=== PATIENT | female | born 1970 | race Caucasian/White ===

== ENCOUNTER → 2016-05-16 | Outpatient (CLI) | payer OTHER ==
[~2016-05-16] MED LIST: FERR324T4 PO; FERR325T PO; GABA100C4 PO; MEDICAL COMPRES1 MIS; PRAV40TA2 PO; SERT-132 PO; TRAM50TA PO; XARE20TA PO
--- NOTE | 2016-05-16 15:15 | RADRPT ---
EXAM DATE/TIME: 05/16/2016 09:57 [facility] COMPARISON: US LEG RIGHT VENOUS DOPPLER, July 23, 2014, 14:08. INDICATIONS : Right leg swelling and pain. MEDICAL HISTORY : Myocardial infarction. Stroke. Deep venous thrombosis. Hyperlipidemia. Dyspnea. Arthritis. Anemia. HPV. SURGICAL HISTORY : Tubal ligation. Eye surgery. Right knee surgery. Cervical conization. ENCOUNTER: Subsequent ACUITY: 3 days PAIN SCORE: 4/10 LOCATION: Right leg. TECHNIQUE: Venous ultrasound of the leg was performed from the inguinal ligament to the proximal calf. Real-gordo e, color Doppler and spectral tracing, compression and augmentation techniques were used. FINDINGS: Nonocclusive thrombus is noted involving the right superficial femoral, popliteal and peroneal veins. There is normal color flow within the right posterior tibial and common femoral veins. CONCLUSION: Nonocclusive thrombus within the right superficial femoral, popliteal and peroneal veins. Mejia Arshad MD on May 16, 2016 at 15:12 Board Certified Radiologist. This report was verified electronically.
== END ==
LOC: HRAD 09:27
PROVIDERS: ATTEND Family Medicine
DX: M79.604 Pain in right leg (principal); I82.409 Acute embolism and thrombosis of unspecified deep veins of unspecified lower extremity; I63.9 Cerebral infarction, unspecified
CPT/HCPCS: 93971

== ENCOUNTER 2016-08-18 13:55 | Emergency (ER) | payer OTHER ==
[~2016-08-18] VITALS: Ht 175.3 cm; Wt 105.0 kg
[~2016-08-18 13:55] MED LIST changes: -FERR324T4 PO; -GABA100C4 PO; -SERT-132 PO; -TRAM50TA PO
[2016-08-18 13:57] VITALS: BP 132/77; PULSE 59; RESP 18; TEMP 98.5; O2SAT 97
[2016-08-18 14:35] VITALS: RESP 17; O2SAT 99
--- NOTE | 2016-08-18 14:36 | PD ---
HPI Chief Complaint: Chest Pain Time Seen by Provider: 14:35 Travel History International Travel<30 days: No Contact w/Intl Traveler<30days: No Traveled to known affect area: No History of Present Illness HPI 46-year-old female with a history of ME, DVT, PE, CVA with right-sided hemiplegia and expressive aphasia presents to the emergency department for evaluation of right knee and thigh pain and chest pain. The patient has a history of IV drug use which was the cause of her stroke. States that she has not used IV drugs since she had her stroke in 2014. She complains of pain in her right knee and right thigh that has been going on for several years now. States that the pain worsened today and it is a 10 on a scale of 1-10. She states that she is also having some chest tightness today. States that she's had chest tightness intermittently for several years now. She has some mild shortness of breath. Denies lightheadedness, dizziness, nausea, vomiting, diarrhea, abdominal pain, numbness or tingling, weakness, swelling of the extremities. She is anticoagulated on Xarelto. PCP is Dr. Toure. No other complaints. PFSH Past Medical History Hx Anticoagulant Therapy: Yes (xarelto) Anemia: Yes (UNKNOWN ETIOLOGY) Arthritis: Yes (right knee) Asthma: No Autoimmune Disease: No Blood Disorders: No Anxiety: Yes Depression: Yes Heart Rhythm Problems: No Cancer: Yes (ABNORMAL PAP ) Cardiovascular Problems: Yes (PT STATES SHE WAS TOLD SHE HAD ONE BUT STATES SHE DIDN'T) High Cholesterol: Yes Chemotherapy: No Chest Pain: No Congestive Heart Failure: No COPD: Yes Cerebrovascular Accident: Yes Diabetes: No Diminished Hearing: No Endocrine: No Gastrointestinal Disorders: No GERD: No Genitourinary: Yes (INCONTINENT DUE TO STROKE) Headaches: No Hepatitis: Yes (PT NOT SURE WHICH TYPE A OR B) Hiatal Hernia: No Hypertension: No Immune Disorder: No Implanted Vascular Access Dvce: Yes Kidney Stones: No Medical other: Yes (DVT IN R LEG, HX OF SUBSTANCE ABUSE) Neurologic: Yes (STROKE April, FLACID ON RUE, SPEECH DIFFICULTY, USE BRACE FOR FOOT) Psychiatric: Yes (DEPRESSION, ANXIETY) Reproductive: Yes (Uterine fibroid) Respiratory: Yes (PE 2004) Immunizations Current: Yes Migraines: No Radiation Therapy: No Renal Failure: No Seizures: No Sickle Cell Disease: No Sleep Apnea: No Thyroid Disease: No Ulcer: No Tetanus Vaccination: > 5 Years Influenza Vaccination: Yes ?: Not : 3 Para: 3 Tubal Ligation: Yes Past Surgical History Abdominal Surgery: No AICD: No Arteriovenous Shunt: No Body Medical Devices: R CORNEAL REPAIR PT NOT SURE IF LENS IMPLANTED Cardiac Surgery: No Ear Surgery: No Endocrine Surgery: No Eye Surgery: Yes (R CORNEAL REPAIR CORNEAL TX ON RIGHSIDE X2) Genitourinary Surgery: No Gynecologic Surgery: No Insulin Pump: No Joint Replacement: No Neurologic Surgery: No Oral Surgery: No Pacemaker: No Thoracic Surgery: No Other Surgery: Yes (RIGHT SIDE OF NECK) Social History Alcohol Use: No (PT DENIES) Tobacco Use: No (quit 2014) Substance Use: Yes (HX OF PT DENIES AT THIS TIME) Allergies-Medications (Allergen,Severity, Reaction): Coded Allergies: Demerol (Verified Allergy, Severe, swelling all over body, 08/18/16) Penicillin (Verified Allergy, Severe, SWELLING, 08/18/16) Reported Meds & Prescriptions Reported Meds & Active Scripts Active Xarelto (Rivaroxaban) 20 Mg Tab 20 Mg PO DAILY Pravastatin 40 Mg Tab 40 Mg PO DAILY Review of Systems Except as stated in HPI: all other systems reviewed are Neg Physical Exam Narrative GENERAL: Well-nourished and well-developed female patient in no acute distress however is histrionic. SKIN: Warm and dry. HEAD: Normocephalic and atraumatic. EYES: No injection, drainage, or hyphema noted. PERRLA. EOMI. ENT: No nasal drainage noted. Oropharynx is clear. NECK: Supple and the trachea is midline. CARDIOVASCULAR: Regular rate and rhythm. RESPIRATORY: Breath sounds are equal bilaterally with no accessory muscle use, wheezing, rhonchi, or crackles. GASTROINTESTINAL: Abdomen is soft, non-tender, and nondistended. MUSCULOSKELETAL: Tenderness to palpation of the right anterior knee and thigh. No obvious deformities, swelling, cyanosis, or ecchymosis is present throughout the upper and lower extremities. Patient has full range of motion in all extremities. DP pulses are 2+ bilaterally. NEUROLOGICAL: Awake, alert, and oriented. Expressive aphasia noted from previous stroke. Cranial nerves are grossly intact. Data Data Last Documented VS Vital Signs Date Time Temp Pulse Resp B/P Pulse Ox O2 Delivery O2 Flow Rate FiO2 08/18/16 15:32 97.8 60 17 108/58 99 Room Air Orders Electrocardiogram (08/18/16 14:32) Ckmb (Isoenzyme) Profile (08/18/16 14:32) Complete Blood Count With Diff (08/18/16 14:32) Comprehensive Metabolic Panel (08/18/16 14:32) Prothrombin Time / Inr (Pt) (08/18/16 14:32) Act Partial Throm Time (Ptt) (08/18/16 14:32) Troponin I (08/18/16 14:32) Chest, Single Ap (08/18/16 14:32) Ecg Monitoring (08/18/16 14:32) Iv Access Insert/Monitor (08/18/16 14:32) Oximetry (08/18/16 14:32) Sodium Chloride 0.9% Flush (Ns Flush) (08/18/16 14:45) Knee, Complete (4vws) (08/18/16 14:32) Us Leg Venous Doppler (08/18/16 14:32) Morphine Inj (Morphine Inj) (08/18/16 14:45) Ondansetron Inj (Zofran Inj) (08/18/16 14:45) Labs Laboratory Tests Test 08/18/16 14:30 White Blood Count 7.8 TH/MM3 Red Blood Count 4.40 MIL/MM3 Hemoglobin 12.5 GM/DL Hematocrit 38.3 % Mean Corpuscular Volume 87.1 FL Mean Corpuscular Hemoglobin 28.5 PG Mean Corpuscular Hemoglobin 32.6 % Concent Red Cell Distribution Width 13.4 % Platelet Count 265 TH/MM3 Mean Platelet Volume 8.2 FL Neutrophils (%) (Auto) 56.9 % Lymphocytes (%) (Auto) 34.3 % Monocytes (%) (Auto) 7.0 % Eosinophils (%) (Auto) 1.2 % Basophils (%) (Auto) 0.6 % Neutrophils # (Auto) 4.4 TH/MM3 Lymphocytes # (Auto) 2.7 TH/MM3 Monocytes # (Auto) 0.5 TH/MM3 Eosinophils # (Auto) 0.1 TH/MM3 Basophils # (Auto) 0.0 TH/MM3 CBC Comment DIFF FINAL Differential Comment Prothrombin Time 13.9 SEC Prothromb Time International 1.2 RATIO Ratio Activated Partial 39.7 SEC Thromboplast Time Sodium Level 140 MEQ/L Potassium Level 4.1 MEQ/L Chloride Level 105 MEQ/L Carbon Dioxide Level 25.5 MEQ/L Anion Gap 10 MEQ/L Blood Urea Nitrogen 10 MG/DL Creatinine 0.84 MG/DL Estimat Glomerular Filtration 73 ML/MIN Rate Random Glucose 70 MG/DL Calcium Level 8.9 MG/DL Total Bilirubin 0.4 MG/DL Aspartate Amino Transf 11 U/L (AST/SGOT) Alanine Aminotransferase 18 U/L (ALT/SGPT) Alkaline Phosphatase 65 U/L Total Creatine Kinase 76 U/L Troponin I LESS THAN 0.02 NG/ML Total Protein 8.1 GM/DL Albumin 3.6 GM/DL MDM Medical Decision Making Medical Screen Exam Complete: Yes Emergency Medical Condition: Yes Differential Diagnosis Muscle strain versus muscle spasm versus DVT versus arthritis versus chest wall pain versus ACS versus anxiety Narrative Course 46-year-old female presents to the emergency department for evaluation of right knee and leg pain and chest pain. Patient is afebrile, vital signs are stable. The patient is reporting that both of these pains have been present for years. She states she is ultimately here today because her right knee and leg is causing her more pain than usual. Physical examination is essentially unremarkable. She has a history of DVT and therefore we'll do an ultrasound. X -ray imaging of the right knee has been ordered and is pending. IV access obtained, labs have been drawn and sent. Patient is placed on cardiac telemetry and pulse oximetry monitoring. EKG shows normal sinus rhythm with no acute ST elevations or depressions. CBC is unremarkable. CMP is unremarkable. Coags are unremarkable. Troponin is less than 0.02. Chest x-ray is unremarkable. X-rays shows mild osteoarthritis of the right knee. No acute abnormality. Right lower extremity ultrasound shows nonocclusive thrombus within the mid to distal femoral vein and popliteal vein. This likely represent chronic DVT related to the thrombus identified on prior study from April 2016. The patient has a chronic DVT in the right lower extremity and some osteoarthritis in the right knee. These are likely why she is experiencing right knee and leg pain. She is already anticoagulated on Xarelto. We'll discharge her home with a short course of tramadol. Advised to follow up as an outpatient with her PCP. Patient verbalizes understanding and agreement with treatment plan. I discussed the case with my attending physician Dr. Dela Cruz who is aware of the patients history, physical examination findings, and treatment plan. Diagnosis Primary Impression: Right knee pain Qualified Code: M25.561 - Chronic pain of right knee Additional Impression: Chronic deep vein thrombosis (DVT) Qualified Code: I82.511 - Chronic deep vein thrombosis (DVT) of femoral vein of right lower extremity Referrals: Primary Care Physician Patient Instructions: General Instructions, Knee Pain (ED) Additional Instructions: Take medication as prescribed. Follow-up with your Primary Care Physician. Return to the ED for any acute worsening of symptoms. Med/Other Pt SpecificInfo: Prescription(s) given Scripts Tramadol 50 Mg Tab50 Mg PO Q8H PRN (PAIN GREATER THAN 6) #15 TAB Ref 0 Prov:Bennett Dela Cruz MD 08/18/16 Disposition: 01 DISCHARGE HOME Condition: Stable Alyssa Martinez Aug 18, 2016 14:36
[2016-08-18] MEDS ORDERED: SODIUM CHLORIDE 0.9% FLUSH 10 ML FLUSH IVF PRN (14:45)
[2016-08-18] MEDS ORDERED: ONDANSETRON HCL 4 MG/2 ML VIAL IVP ONE (14:45)
[2016-08-18] MEDS ORDERED: MORPHINE SULFATE 4 MG/ML INJ IV PUSH ONE (14:45)
[2016-08-18 14:54] LABS: AUTOMATED NEUTROPHIL # 4.4 TH/MM3 (1.8-7.7); BASOPHIL % 0.6 % (0.0-2.0); EOSINOPHIL # 0.1 TH/MM3 (0-0.4); EOSINOPHIL % 1.2 % (0.0-4.0); HEMATOCRIT 38.3 % (35.0-46.0); HEMO FLAGS DIFF FINAL; LYMPH % 34.3 % (9.0-44.0); LYMPHOCYTE # 2.7 TH/MM3 (1.0-4.8); MEAN CELL VOLUME 87.1 FL (80.0-100.0); MEAN CORPUSCULAR HEMOGLOBIN 28.5 PG (27.0-34.0); MEAN CORPUSCULAR HGB CONC 32.6 % (32.0-36.0); NEUT % 56.9 % (16.0-70.0); PLATELET COUNT 265 TH/MM3 (150-450); RED CELL DISTRIBUTION WIDTH 13.4 % (11.6-17.2); WHITE BLOOD COUNT 7.8 TH/MM3 (4.0-11.0)
[2016-08-18 15:09] LABS: APTT (PATIENT) 39.7 SEC (24.3-30.1); INTERNATIONAL NORMALIZED RATIO 1.2 RATIO; PROTHROMBIN TIME - PATIENT 13.9 SEC (9.8-11.6)
[2016-08-18 15:16] LABS: ALT (GPT) 18 U/L (10-53); ANION GAP 10 MEQ/L (5-15); AST (GOT) 11 U/L (15-37); BICARBONATE 25.5 MEQ/L (21.0-32.0); BLOOD UREA NITROGEN 10 MG/DL (7-18); CHLORIDE 105 MEQ/L (98-107); GLOMERULAR FILTRATION RATE 73 ML/MIN (>89); POTASSIUM 4.1 MEQ/L (3.5-5.1); SODIUM (NA) 140 MEQ/L (136-145)
[2016-08-18 15:20] LABS: ALKALINE PHOSPHATASE 65 U/L (45-117); TOTAL BILIRUBIN ADULT 0.4 MG/DL (0.2-1.0)
[2016-08-18 15:23] LABS: CREATINE KINASE 76 U/L (26-192)
[2016-08-18 15:32] VITALS: BP 108/58; PULSE 60; RESP 17; TEMP 97.8; O2SAT 99
--- NOTE | 2016-08-18 15:37 | RADRPT ---
EXAM DATE/TIME: 08/18/2016 14:46 [facility] COMPARISON: US LEG RIGHT VENOUS DOPPLER, May 16, 2016, 9:57. INDICATIONS : Right leg pain. MEDICAL HISTORY : Myocardial infarction. Hypercholesterolemia. Chronic obstructive pulmonary disease. Stroke. CVA. A nticoagulant therapy. DVT. Pulmonary embolism. Dyspnea. Uterine fibroids. Arthritis. Hepatitis. SURGICAL HISTORY : Tubal ligation. Right eye prosthesis. Throat surgery. Right corneal repair. Cerival conization. ENCOUNTER: Initial ACUITY: 1 day PAIN SCORE: 10/10 LOCATION: Right leg. TECHNIQUE: Venous ultrasound of the leg was performed from the inguinal ligament to the proximal calf. Real-gordo e, color Doppler and spectral tracing, compression and augmentation techniques were used. FINDINGS: There is incomplete compression of the right mid femoral vein, distal femoral vein, popliteal vein, a nd posterior tibial vein. These vessels demonstrate residual blood flow. The more proximal vessels ar e patent. CONCLUSION: There is nonocclusive thrombus within the mid to distal femoral vein and popliteal vein. This likely represents chronic DVT related to the thrombus identified on prior study from 05/16/2016. Frank Sainz MD on August 18, 2016 at 15:32 Board Certified Radiologist. This report was verified electronically.
--- NOTE | 2016-08-18 15:56 | RADRPT ---
EXAM DATE/TIME: 08/18/2016 14:58 [facility] COMPARISON: CHEST SINGLE AP, July 10, 2015, 9:17. INDICATIONS : Chest pain. No injury. MEDICAL HISTORY : Myocardial infarction. Stroke. Deep venous thrombosis. Hyperlipidemia. Dyspnea. Arthritis. Anemia. HP V. SURGICAL HISTORY : Tubal ligation. Eye surgery. Right knee surgery. Cervical conization ENCOUNTER: Initial ACUITY: 2 days PAIN SCORE: 2/10 LOCATION: Bilateral chest FINDINGS: A single view of the chest demonstrates the lungs to be symmetrically aerated without evidence of mas s, infiltrate or effusion. The cardiomediastinal contours are unremarkable. Osseous structures are intact. CONCLUSION: 1. No acute findings. Juan Luis Hassan MD on August 18, 2016 at 15:53 Board Certified Radiologist. This report was verified electronically.
--- NOTE | 2016-08-18 15:59 | RADRPT ---
EXAM DATE/TIME: 08/18/2016 15:01 [facility] COMPARISON: No previous studies available for comparison. INDICATIONS : Right knee pain and swelling. No injury. MEDICAL HISTORY : Stroke. Myocardial infarction. Deep venous thrombosis. Hyperlipidemia. Dyspnea. Arthritis. Anemia . HPV. SURGICAL HISTORY : Tubal ligation. Eye surgery. Right knee surgery. Cervical conization. ENCOUNTER: Subsequent ACUITY: 1 week PAIN SCORE: 4/10 LOCATION: Right knee FINDINGS: Four view examination of the right knee demonstrates no evidence of fracture or dislocation. Bony mi neralization is normal. The articular surfaces are intact. The suprapatellar soft tissues have a no rmal configuration. CONCLUSION: Mild osteoarthritis of the right knee. No acute bony abnormality. Juan Luis Hassan MD on August 18, 2016 at 15:54 Board Certified Radiologist. This report was verified electronically.
[2016-08-18] MEDS ORDERED: TRAM50TA PO (16:11)
[2016-08-18 16:20] VITALS: BP 128/76; TEMP 97.8
--- NOTE | 2016-08-19 16:33 | EKG ---
Date Performed: 08/18/2016 Time Performed: 14:27:59 PTAGE: 46 years EKG: Sinus rhythm NORMAL ECG PREVIOUS TRACING : 02/05/2015 23.18 Compared to prior tracing no significant change DOCTOR: Renetta Morales Interpretating Date/Time 08/19/2016 16:32:57
[2016-08-20] MEDS ORDERED: FERR324T4 PO (16:12)
== END 2016-08-18 16:20 | disposition home or self-care (01) ==
LOC: NEPE 13:55
DX: M25.561 Pain in right knee (principal); G89.29 Other chronic pain; I82.511 Chronic embolism and thrombosis of right femoral vein
CPT/HCPCS: 71010; 73564; 80053; 82550; 84484; 85025; 85610; 85730; 93005; 93971; 96374; 96375; 99285; J2270; J2405

== ENCOUNTER 2016-09-27 13:40 | Emergency (ER) | payer OTHER ==
[~2016-09-27] VITALS: Ht 175.3 cm; Wt 105.0 kg
[~2016-09-27 13:40] MED LIST changes: +FERR324T4 PO; -FERR325T PO; -MEDICAL COMPRES1 MIS
[2016-09-27 13:52] VITALS: BP 122/60; PULSE 81; RESP 46; TEMP 98.4; O2SAT 97
--- NOTE | 2016-09-27 14:33 | RADRPT ---
EXAM DATE/TIME: 09/27/2016 14:05 [facility] COMPARISON: No previous studies available for comparison. INDICATIONS : Entire right foot pain after rolling it today. MEDICAL HISTORY : Stroke. Hypercholesterolemia. Myocardial infarction. DVT. Uterine fibroid, PE. Osteoarthrits. HPV . SURGICAL HISTORY : Tubal ligation. Ganglion cyst removal. ENCOUNTER: Initial ACUITY: 1 day PAIN SCORE: 8/10 LOCATION: Right foot FINDINGS: Three view examination of the right foot demonstrates no soft tissue swelling, dislocation, or fractu re. The tarsal bones appear intact. The interphalangeal and metatarsophalangeal joints are intact. The calcaneus is intact. Bony mineralization is normal. CONCLUSION: 1. No acute findings. Juan Luis Hassan MD on September 27, 2016 at 14:30 Board Certified Radiologist. This report was verified electronically.
--- NOTE | 2016-09-27 14:58 | PD ---
HPI Chief Complaint: Musculoskeletal Complaint Time Seen by Provider: 14:35 Travel History International Travel<30 days: No Contact w/Intl Traveler<30days: No Traveled to known affect area: No History of Present Illness HPI 46-year-old female presents for evaluation of right ankle pain. She reports that this morning she rolled her right ankle in an inversion mechanism while she was walking. Initially she had some pain but she was able to ambulate. Over the course of the past several hours the pain has progressed and now it is quite painful when she ambulance. Pain is a throbbing pain along the lateral aspect of the right ankle which is constant, worse with movement. She denies any other injuries and she has no other complaints at this time. PFSH Past Medical History Hx Anticoagulant Therapy: Yes (xarelto) Anemia: Yes (UNKNOWN ETIOLOGY) Arthritis: Yes (right knee) Asthma: No Autoimmune Disease: No Blood Disorders: No Anxiety: Yes Depression: Yes Heart Rhythm Problems: No Cancer: Yes (ABNORMAL PAP ) Cardiovascular Problems: Yes (PT STATES SHE WAS TOLD SHE HAD ONE BUT STATES SHE DIDN'T) High Cholesterol: Yes Chemotherapy: No Chest Pain: No Congestive Heart Failure: No COPD: Yes Cerebrovascular Accident: Yes Diabetes: No Diminished Hearing: No Endocrine: No Gastrointestinal Disorders: No GERD: No Genitourinary: Yes (INCONTINENT DUE TO STROKE) Headaches: No Hepatitis: Yes (PT NOT SURE WHICH TYPE A OR B) Hiatal Hernia: No Heparin Induced Thrombocytopen: No Hypertension: No Immune Disorder: No Implanted Vascular Access Dvce: Yes Kidney Stones: No Medical other: Yes (DVT IN R LEG, HX OF SUBSTANCE ABUSE) Neurologic: Yes (STROKE April, FLACID ON RUE, SPEECH DIFFICULTY, USE BRACE FOR FOOT) Psychiatric: Yes (DEPRESSION, ANXIETY) Reproductive: Yes (Uterine fibroid) Respiratory: Yes (PE 2004) Immunizations Current: Yes Migraines: No Radiation Therapy: No Renal Failure: No Seizures: No Sickle Cell Disease: No Sleep Apnea: No Thyroid Disease: No Ulcer: No ?: Not LMP: TUBAL LIAGATION : 3 Para: 3 Tubal Ligation: Yes Past Surgical History Abdominal Surgery: No AICD: No Arteriovenous Shunt: No Body Medical Devices: R CORNEAL REPAIR PT NOT SURE IF LENS IMPLANTED Cardiac Surgery: No Ear Surgery: No Endocrine Surgery: No Eye Surgery: Yes (R CORNEAL REPAIR CORNEAL TX ON RIGHSIDE X2) Genitourinary Surgery: No Gynecologic Surgery: No Insulin Pump: No Joint Replacement: No Neurologic Surgery: No Oral Surgery: No Pacemaker: No Thoracic Surgery: No Other Surgery: Yes (RIGHT SIDE OF NECK) Social History Alcohol Use: No (PT DENIES) Tobacco Use: No (quit 2014) Substance Use: Yes (HX OF PT DENIES AT THIS TIME) Allergies-Medications (Allergen,Severity, Reaction): Coded Allergies: Demerol (Verified Allergy, Severe, swelling all over body, 09/27/16) Penicillin (Verified Allergy, Severe, SWELLING, 09/27/16) Reported Meds & Prescriptions Reported Meds & Active Scripts Active Xarelto (Rivaroxaban) 20 Mg Tab 20 Mg PO DAILY Pravastatin 40 Mg Tab 40 Mg PO DAILY Reported Ferrous Sulfate DR (Ferrous Sulfate) 324 Mg Tabdr 324 Mg PO DAILY Review of Systems Musculoskeletal: Positive: Limited ROM, Edema, Pain Neurologic: No: Paresthesia Physical Exam Narrative GENERAL: Well-developed well-nourished female in no acute distress SKIN: Warm and dry. Some soft tissue swelling around the lateral malleolus of the right ankle. This is tender to palpation. CARDIOVASCULAR: Regular rate and rhythm. No murmur appreciated. RESPIRATORY: No accessory muscle use. Clear to auscultation. Breath sounds equal bilaterally. GASTROINTESTINAL: Abdomen soft, non-tender, nondistended. Hepatic and splenic margins not palpable. MUSCULOSKELETAL: Skin as noted above. There is pain with dorsi and plantar flexion of the right ankle. The Achilles tendon is intact and nontender. The medial aspect of the right ankle is nontender. NEUROLOGICAL: Awake and alert. No obvious cranial nerve deficits. Motor grossly within normal limits. Normal speech. Data Data Last Documented VS Vital Signs Date Time Temp Pulse Resp B/P Pulse Ox O2 Delivery O2 Flow Rate FiO2 09/27/16 13:52 98.4 81 46 122/60 97 Orders Foot, Complete ([id number]) (09/27/16 ) Ankle, Complete ([id number]) (09/27/16 ) Ice/Cold Pack (09/27/16 14:48) Acetaminophen (Tylenol) (09/27/16 15:00) Splint Or Brace Apply/Monitor (09/27/16 15:59) Crutches (09/27/16 15:59) MDM Medical Decision Making Medical Screen Exam Complete: Yes Emergency Medical Condition: Yes Medical Record Reviewed: Yes Differential Diagnosis Lateral ankle sprain, avulsion fracture, fibula fracture, Lisfranc injury Narrative Course 46-year-old female with lateral right ankle pain after twisting her ankle. X-ray imaging reveals no fracture. Her examination and history are consistent with lateral ankle sprain. She is being discharged with ankle stirrup splint and crutches. Diagnosis Primary Impression: Right ankle sprain Qualified Code: S93.401A - Sprain of right ankle, unspecified ligament, initial encounter Additional Instructions: Ice pack several times a day 10-15 minutes at a time. Elevate as much as possible. Crutches as needed. Once the swelling is resolved gradually return to normal activities avoiding activities that increase pain. Follow-up with primary care physician in 2 weeks for recheck. Med/Other Pt SpecificInfo: No Change to Meds Disposition: 01 DISCHARGE HOME Condition: Stable Kevan Giraldo Sep 27, 2016 14:58
[2016-09-27] MEDS ORDERED: ACETAMINOPHEN 325 MG TAB PO ONE (15:00)
--- NOTE | 2016-09-27 15:53 | RADRPT ---
EXAM DATE/TIME: 09/27/2016 15:16 [facility] COMPARISON: No previous studies available for comparison. INDICATIONS : Right lateral ankle pain after rolling it today. MEDICAL HISTORY : Stroke. Hypercholesterolemia. Myocardial infarction. DVT. Uterine fibroid, SURGICAL HISTORY : Tubal ligation. Ganglion cyst removal. ENCOUNTER: Initial ACUITY: 1 day PAIN SCORE: 10/10 LOCATION: Right Ankle FINDINGS: Three views of the right ankle demonstrate no fracture or dislocation. Ankle mortise is intact. [place] alization is within normal limits and there is no significant arthropathy. No soft tissue abnormality or radiopaque foreign body is identified. There is an enthesophyte at the posterior aspect of the ca lcaneus. CONCLUSION: No acute right ankle abnormality is identified. Frank Sainz MD on September 27, 2016 at 15:51 Board Certified Radiologist. This report was verified electronically.
== END 2016-09-27 17:25 | disposition home or self-care (01) ==
LOC: PHED 13:40
DX: S93.401A Sprain of unspecified ligament of right ankle, initial encounter (principal); X50.1XXA Overexertion from prolonged static or awkward postures, initial encounter; Y93.01 Activity, walking, marching and hiking
CPT/HCPCS: 73610; 73630; 99283; E0113; L1906

== ENCOUNTER 2016-10-19 22:10 | Emergency (ER) | payer OTHER ==
[~2016-10-19] VITALS: Ht 175.3 cm; Wt 107.0 kg
[2016-10-19 22:13] VITALS: BP 137/73; PULSE 72; RESP 16; TEMP 97.2; O2SAT 96
[2016-10-19] MEDS ORDERED: ACETAMINOPHEN/HYDROcodone 325 MG/5 MG TAB PO ONE (23:15)
--- NOTE | 2016-10-19 23:15 | PD ---
HPI Chief Complaint: Edema Time Seen by Provider: 22:57 Travel History International Travel<30 days: No Contact w/Intl Traveler<30days: No Traveled to known affect area: No History of Present Illness HPI The patient is a 46-year-old female who presents to the emergency department for swelling and pain in the posterior aspect of the left knee for the last 3 days duration. 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 The patient was taking Xarelto, however, stopped her Xarelto for 3 days last week for upcoming dental appointment that was subsequent we canceled. The patient then resumed her Xarelto. She complains of pain in the posterior aspect of the left knee that radiates into the left calf, worse with palpation and certain movements. 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 Symptoms are moderate , there are no current alleviating or exacerbating factors. PFSH Past Medical History Hx Anticoagulant Therapy: Yes (XARELTO ) Anemia: Yes (UNKNOWN ETIOLOGY) Arthritis: Yes (right knee) Asthma: No Autoimmune Disease: No Blood Disorders: No Anxiety: Yes Depression: Yes Heart Rhythm Problems: No Cancer: Yes (ABNORMAL PAP ) Cardiovascular Problems: Yes (PT STATES SHE WAS TOLD SHE HAD ONE BUT STATES SHE DIDN'T) High Cholesterol: Yes Chemotherapy: No Chest Pain: No Congestive Heart Failure: No COPD: Yes Cerebrovascular Accident: Yes Diabetes: No Diminished Hearing: No Endocrine: No Gastrointestinal Disorders: No GERD: No Genitourinary: Yes (INCONTINENT DUE TO STROKE) Headaches: No Hepatitis: Yes (PT NOT SURE WHICH TYPE A OR B) Hiatal Hernia: No Heparin Induced Thrombocytopen: No Hypertension: No Immune Disorder: No Implanted Vascular Access Dvce: Yes Kidney Stones: No Neurologic: Yes (STROKE April, FLACID ON RUE, SPEECH DIFFICULTY, USE BRACE FOR FOOT) Psychiatric: Yes (DEPRESSION, ANXIETY) Reproductive: Yes (Uterine fibroid) Respiratory: Yes (PE 2004) Immunizations Current: Yes Migraines: No Radiation Therapy: No Renal Failure: No Seizures: No Sickle Cell Disease: No Sleep Apnea: No Thyroid Disease: No Ulcer: No : 3 Para: 3 Tubal Ligation: Yes Past Surgical History Abdominal Surgery: No AICD: No Arteriovenous Shunt: No Body Medical Devices: R CORNEAL REPAIR PT NOT SURE IF LENS IMPLANTED Cardiac Surgery: No Ear Surgery: No Endocrine Surgery: No Eye Surgery: Yes (R CORNEAL REPAIR CORNEAL [place] ON RIGHSIDE X2) Genitourinary Surgery: No Gynecologic Surgery: No Insulin Pump: No Joint Replacement: No Neurologic Surgery: No Oral Surgery: No Pacemaker: No Thoracic Surgery: No Other Surgery: Yes (RIGHT SIDE OF NECK) Social History Alcohol Use: No (PT DENIES) Tobacco Use: No (quit 2014) Substance Use: Yes (HX OF PT DENIES AT THIS TIME) Allergies-Medications (Allergen,Severity, Reaction): Coded Allergies: meperidine (Unverified Allergy, Severe, swelling all over body, 10/19/16) penicillin G (Unverified Allergy, Severe, SWELLING, 10/19/16) Reported Meds & Prescriptions Reported Meds & Active Scripts Active Xarelto (Rivaroxaban) 20 Mg Tab 20 Mg PO DAILY Pravastatin 40 Mg Tab 40 Mg PO DAILY Reported Ferrous Sulfate DR (Ferrous Sulfate) 324 Mg Tabdr 324 Mg PO DAILY Review of Systems Except as stated in HPI: all other systems reviewed are Neg Cardiovascular: No: Chest Pain or Discomfort Respiratory: No: Shortness of Breath Musculoskeletal: Positive: Edema, Pain Neurologic: Positive: Other (history of previous CVA with left-sided weakness) Physical Exam Narrative GENERAL: Awake, alert, pleasant 46-year-old female who appears her stated age and is in no acute respiratory distress. SKIN: Focused skin assessment warm/dry. HEAD: Atraumatic. Normocephalic. EYES: Pupils equal and round. No scleral icterus. No injection or drainage. ENT: No nasal bleeding or discharge. Mucous membranes pink and moist. NECK: Trachea midline. No JVD. CARDIOVASCULAR: Regular rate and rhythm. No murmur appreciated. RESPIRATORY: No accessory muscle use. Clear to auscultation. Breath sounds equal bilaterally. MUSCULOSKELETAL: Patient does have mild edema the posterior aspect the left knee over the popliteal fossa tenderness. Mild tenderness of the posterior aspect the left calf. Positive left dorsalis pedal pulse. NEUROLOGICAL: Awake and alert. No obvious cranial nerve deficits. Paralysis noted in the left upper extremity with limited range of motion and movement of the left lower extremity. PSYCHIATRIC: Appropriate mood and affect; insight and judgment normal. Data Data Last Documented VS Vital Signs Date Time Temp Pulse Resp B/P (MAP) Pulse Ox O2 Delivery O2 Flow Rate FiO2 10/19/16 23:50 62 16 106/56 (73) 98 10/19/16 22:13 97.2 Room Air Orders Orders Us Leg Venous Doppler (10/19/16 ) Acetamin-Hydrocod 325-5 Mg ([place] 5-325 (10/19/16 23:15) MDM Medical Decision Making Medical Screen Exam Complete: Yes Emergency Medical Condition: Yes Medical Record Reviewed: Yes Interpretation(s) Last Impressions Lower Extremity Ultrasound 10/19/16 0000 Signed Impressions: Service Date/Time: Wednesday, October 19, 2016 23:59 - CONCLUSION: Normal examination. Juan Luis Hassan MD Differential Diagnosis Differential diagnosis includes DVT, popliteal cyst, Castillo's cyst, thrombophlebitis, effusion, fracture, dislocation. Narrative Course Ultrasound of the left lower extremity was ordered. The patient was administered [place] 5 mg/325 mg orally for pain. Ultrasound is negative for DVT , the patient's mild swelling may be a Castillo cyst versus popliteal cyst. She will be provided pain medications without NSAIDs as she is already on Xarelto. She will be provided a copy of her ultrasound report at discharge and is advised to follow-up with her primary physician. Return if symptoms worsen or progress. Diagnosis Primary Impression: Popliteal pain Patient Instructions: General Instructions Additional Instructions: Medications as directed. Follow-up with your primary physician. Please provide the patient a copy of her ultrasound report at discharge. Return if symptoms worsen or progress. Med/Other Pt SpecificInfo: Prescription(s) given Scripts Hydrocodone-Acetaminophen ([place]) 5-325 mg Tab 1 TAB PO Q6H Y for PAIN for 10 Days, TAB 0 Refills Prov: Benjamin Johnson MD 10/20/16 Disposition: DISCHARGE HOME Condition: Stable Benjamin Johnson MD Oct 19, 2016 23:15
[2016-10-19 23:50] VITALS: BP 106/56; PULSE 62; RESP 16; O2SAT 98
--- NOTE | 2016-10-20 01:05 | RADRPT ---
EXAM DATE/TIME: 10/19/2016 23:59 [facility] COMPARISON: No previous studies available for comparison. INDICATIONS : Left leg pain. MEDICAL HISTORY : Deep vein thrombosis. Cerebrovascular accident. Myocardial infarction. Hypercholesterolemia. Uter ine fibroid. Arthritis. Anemia. SURGICAL HISTORY : Tubal ligation. Parotid stone removal. ENCOUNTER: Subsequent ACUITY: 3 days PAIN SCORE: 10/10 LOCATION: Left leg. TECHNIQUE: Venous ultrasound of the leg was performed from the inguinal ligament to the proximal calf. Real-gordo e, color Doppler and spectral tracing, compression and augmentation techniques were used. FINDINGS: There is normal compressibility of the deep venous system from the inguinal region to the proximal ca lf. No echogenic clot is seen in the lumen of the common femoral, femoral, popliteal, and posterior tibial veins. There is a normal response of the venous system to proximal and distal augmentation an d respiration. CONCLUSION: Normal examination. Juan Luis Hassan MD on October 20, 2016 at 1:02 Board Certified Radiologist. This report was verified electronically.
[2016-10-20] MEDS ORDERED: NORC5TAB PO (01:39)
[2016-10-22] MEDS ORDERED: HYDR-3533 PO (16:44)
--- NOTE | 2016-10-22 16:45 | PD ---
Data Data Last Documented VS Vital Signs Date Time Temp Pulse Resp B/P (MAP) Pulse Ox O2 Delivery O2 Flow Rate FiO2 10/20/16 02:03 10/19/16 23:50 62 16 98 Room Air 10/19/16 22:13 97.2 Orders Orders Us Leg Venous Doppler (10/19/16 ) Acetamin-Hydrocod 325-5 Mg ([place] 5-325 (10/19/16 23:15) MDM Supervised Visit with AFTAB: No Narrative Course Patient was prescribed Lortab dispense 10 for 10 days. The pharmacy wouldn't accept it. I rewrote the prescription for dispensed 10 and discarded the other prescription. I was with Carmen Herbert at that time. Diagnosis Primary Impression: Popliteal pain Patient Instructions: General Instructions Departure Forms: Tests/Procedures Additional Instruction: Medications as directed. Follow-up with your primary physician. Please provide the patient a copy of her ultrasound report at discharge. Return if symptoms worsen or progress. Scripts Hydrocodone-Acetaminophen (Lortab) 5-325 Mg Tab 1 TAB PO Q6H Y for PAIN, #10 TAB 0 Refills Prov: Chen Coned MD 10/22/16 Hydrocodone-Acetaminophen ([place]) 5-325 mg Tab 1 TAB PO Q6H Y for PAIN for 10 Days, TAB 0 Refills Prov: Benjamin Johnson MD 10/20/16 Disposition: 01 DISCHARGE HOME Condition: Stable Chen Conde MD Oct 22, 2016 16:45
== END 2016-10-20 02:17 | disposition home or self-care (01) ==
LOC: NEPE 22:10
DX: M79.662 Pain in left lower leg (principal); Z79.01 Long term (current) use of anticoagulants
CPT/HCPCS: 93971

== ENCOUNTER 2017-06-12 18:58 | Emergency (ER) | payer OTHER, MEDICAID ==
[~2017-06-12] VITALS: Ht 175.3 cm; Wt 112.0 kg
[~2017-06-12 18:58] MED LIST changes: +HYDR-3533 PO; +NORC5TAB PO
[2017-06-12 19:19] VITALS: BP 123/61; PULSE 69; RESP 20; TEMP 98.3; O2SAT 97
[2017-06-12 19:54] VITALS: BP 122/82; PULSE 72; RESP 18; O2SAT 98
[2017-06-12] MEDS ORDERED: KETOROLAC TROMETHAMINE 60 MG/2 ML (IM) VIAL IM ONE (20:30)
[2017-06-12] MEDS ORDERED: DIAZEPAM 5 MG TAB PO ONE (21:15)
--- NOTE | 2017-06-12 21:15 | PD ---
HPI Chief Complaint: Pain: Acute or Chronic Time Seen by Provider: 20:07 Travel History International Travel<30 days: No Contact w/Intl Traveler<30days: No Traveled to known affect area: No History of Present Illness HPI 47yo F with PMH of CVA with right sided weakness, right DVT on xarelto here with c/o worsening right leg pain and swelling for 3 days. Said she has DVT in right leg but usually pain in calf and not the entire leg. Denies any fever, trauma, chest pain, sob, n/v, abdominal pain, focal weakness or numbness. PFSH Past Medical History Hx Anticoagulant Therapy: Yes (XARELTO ) Anemia: Yes (UNKNOWN ETIOLOGY) Arthritis: Yes (right knee) Asthma: No Autoimmune Disease: No Blood Disorders: No Anxiety: Yes Depression: Yes Heart Rhythm Problems: No Cancer: Yes (ABNORMAL PAP ) Cardiovascular Problems: Yes (PT STATES SHE WAS TOLD SHE HAD ONE BUT STATES SHE DIDN'T) High Cholesterol: Yes Chemotherapy: No Chest Pain: No Congestive Heart Failure: No COPD: Yes Cerebrovascular Accident: Yes (right sided weakness and mild dysarthia) Diabetes: No Diminished Hearing: No Endocrine: No Gastrointestinal Disorders: No GERD: No Genitourinary: Yes (INCONTINENT DUE TO STROKE) Headaches: No Hepatitis: Yes (PT NOT SURE WHICH TYPE A OR B) Hiatal Hernia: No Heparin Induced Thrombocytopen: No Hypertension: No Immune Disorder: No Implanted Vascular Access Dvce: Yes Kidney Stones: No Medical other: Yes (DVT IN R LEG, HX OF SUBSTANCE ABUSE) Neurologic: Yes (STROKE April, FLACID ON RUE, SPEECH DIFFICULTY, USE BRACE FOR FOOT) Psychiatric: Yes (DEPRESSION, ANXIETY) Reproductive: Yes (Uterine fibroid) Respiratory: Yes (PE 2004) Immunizations Current: Yes Migraines: No Radiation Therapy: No Renal Failure: No Seizures: No Sickle Cell Disease: No Sleep Apnea: No Thyroid Disease: No Ulcer: No Tetanus Vaccination: > 5 Years Influenza Vaccination: No ?: Not LMP: 3-21-18 : 3 Para: 3 Tubal Ligation: Yes Past Surgical History Abdominal Surgery: No AICD: No Arteriovenous Shunt: No Body Medical Devices: R CORNEAL REPAIR PT NOT SURE IF LENS IMPLANTED Cardiac Surgery: No Ear Surgery: No Endocrine Surgery: No Eye Surgery: Yes (R CORNEAL REPAIR CORNEAL [place] ON RIGHSIDE X2) Genitourinary Surgery: No Gynecologic Surgery: No Insulin Pump: No Joint Replacement: No Neurologic Surgery: No Oral Surgery: No Pacemaker: No Thoracic Surgery: No Other Surgery: Yes (RIGHT SIDE OF NECK) Social History Alcohol Use: No (PT DENIES) Tobacco Use: No (quit 2014) Substance Use: No (HX OF PT DENIES AT THIS TIME) Allergies-Medications (Allergen,Severity, Reaction): Coded Allergies: meperidine (Unverified Allergy, Severe, swelling all over body, 06/12/17) penicillin G (Unverified Allergy, Severe, SWELLING, 06/12/17) Reported Meds & Prescriptions Reported Meds & Active Scripts Active Xarelto (Rivaroxaban) 20 Mg Tab 20 Mg PO DAILY Pravastatin 40 Mg Tab 40 Mg PO DAILY Reported Ferrous Sulfate DR (Ferrous Sulfate) 324 Mg Tabdr 324 Mg PO DAILY Review of Systems Except as stated in HPI: all other systems reviewed are Neg Physical Exam Narrative GENERAL: 47yo F in mild distress. SKIN: Focused skin assessment warm/dry. HEAD: Atraumatic. Normocephalic. EYES: Pupils equal and round. No scleral icterus. No injection or drainage. ENT: No nasal bleeding or discharge. Mucous membranes pink and moist. NECK: Trachea midline. No JVD. CARDIOVASCULAR: Regular rate and rhythm. No murmur appreciated. RESPIRATORY: No accessory muscle use. Clear to auscultation. Breath sounds equal bilaterally. GASTROINTESTINAL: Abdomen soft, non-tender, nondistended. MUSCULOSKELETAL: No obvious deformities. No clubbing. No cyanosis. +Mild bilateral lower extremity edema. RLE: +Diffuse ttp from femur to calf. No erythema. Distal pulses intact. Sensation intact. NEUROLOGICAL: Awake and alert. No obvious cranial nerve deficits. Motor grossly within normal limits. Normal speech. PSYCHIATRIC: Appropriate mood and affect; insight and judgment normal. Data Data Last Documented VS Vital Signs Date Time Temp Pulse Resp B/P (MAP) Pulse Ox O2 Delivery O2 Flow Rate FiO2 06/12/17 22:47 63 16 134/74 (94) 96 Room Air 06/12/17 19:19 98.3 Orders Orders Us Leg Venous Doppler (06/12/17 ) Ketorolac Inj (Toradol Inj) (06/12/17 20:30) Diazepam (Valium) (06/12/17 21:15) MDM Medical Decision Making Medical Screen Exam Complete: Yes Emergency Medical Condition: Yes Differential Diagnosis Worsening DVT vs. musculoskeletal pain Narrative Course 47yo F with RLE edema and pain that is worst for 3 days. Pt had US Right leg that showed nonocclusive thrombus mid and distal femoral vein and popliteal vein. Pt given toradol which helped with pain but still have some pain so valium given. Pt reevaluated at bedside after valium and pain has completely resolved. Pt feels better and wants to go home. US right lower extremity: No DVT seen. Return precautions given. Diagnosis Primary Impression: Right leg pain Patient Instructions: General Instructions Departure Forms: Tests/Procedures Additional Instructions: Please follow up with your primary care physician in 3-7 days. Return to the ED if symptoms worsen. Med/Other Pt SpecificInfo: Prescription(s) given Scripts Acetaminophen (Tylenol) 325 Mg Tab 650 MG PO Q6H Y for PAIN SCALE 3 TO 5, #20 TAB 0 Refills Prov: Domonique De Guzman DO 06/12/17 Disposition: 01 DISCHARGE HOME Condition: Stable Domonique De Guzman DO Jun 12, 2017 21:15
--- NOTE | 2017-06-12 22:31 | RADRPT ---
EXAM DATE/TIME: 06/12/2017 22:00 [facility] COMPARISON: US LEG RIGHT VENOUS DOPPLER, August 18, 2016, 14:46. INDICATIONS : Right leg swelling. MEDICAL HISTORY : Stroke. Myocardial infarction. Hypercholesterolemia. Right sided weakness. Hyperlipidemia. Hyperch olestrolemia. Deep vein thrombosis. COPD. Dyspnea. Pulmonary embolisim. Uterine fibroid. Depression. Anxiety. Anemia. SURGICAL HISTORY : Tubal ligation. Right corneal repair. Left wrist ganglion cyst removed. ENCOUNTER: Subsequent ACUITY: 2 day PAIN SCORE: 3/10 LOCATION: Right leg. TECHNIQUE: Venous ultrasound of the leg was performed from the inguinal ligament to the proximal calf. Real-gorod e, color Doppler and spectral tracing, compression and augmentation techniques were used. FINDINGS: There is normal compressibility of the deep venous system from the inguinal region to the proximal ca lf. No echogenic clot is seen in the lumen of the common femoral, femoral, popliteal, and posterior tibial veins. There is a normal response of the venous system to proximal and distal augmentation an d respiration. CONCLUSION: No DVT seen. Frank Alejandra MD on June 12, 2017 at 22:28 Board Certified Radiologist. This report was verified electronically.
[2017-06-12 22:47] VITALS: BP 134/74; PULSE 63; RESP 16; O2SAT 96
[2017-06-12] MEDS ORDERED: TYLE325T PO (22:56)
[2017-06-12 23:10] VITALS: BP 125/68
== END 2017-06-12 23:24 | disposition home or self-care (01) ==
LOC: PHED 18:58
DX: M79.604 Pain in right leg (principal); E78.00 Pure hypercholesterolemia, unspecified; F32.9 Major depressive disorder, single episode, unspecified; F41.9 Anxiety disorder, unspecified; I69.351 Hemiplegia and hemiparesis following cerebral infarction affecting right dominant side; J44.9 Chronic obstructive pulmonary disease, unspecified; Z86.711 Personal history of pulmonary embolism; Z86.718 Personal history of other venous thrombosis and embolism; Z87.891 Personal history of nicotine dependence
CPT/HCPCS: 93971; 96372; 99284; J1885